=== PATIENT | male | born 1975 | race Caucasian/White ===

== ENCOUNTER → 2018-08-30 | Outpatient (CLI) | payer OTHER ==
--- NOTE | 2018-08-30 10:49 | RAD ---
EXAM: Chest, 2 views. HISTORY: Shortness of breath. COMPARISON: 09/29/2015 FINDINGS: 2 views the chest are obtained. There is no infiltrate, pleural effusion or pneumothorax. The heart is normal in size. There is cervical spinal fusion instrumentation. IMPRESSION: No acute pulmonary finding. Electronically signed by: Shwetha Paris MD (08/30/2018 10:44 AM) [id number]
== END | disposition home or self-care (01) ==
LOC: PMG 10:12
PROVIDERS: ATTEND Registered Nurse
DX: R06.02 Shortness of breath (principal)
CPT/HCPCS: 71046

== ENCOUNTER 2021-02-19 22:20 | Emergency (ER) | payer OTHER ==
[~2021-02-19] VITALS: Ht 175.3 cm; Wt 108.8 kg
--- NOTE | 2021-02-19 22:41 | PHYS DOC ---
Adult General Chief Complaint Chief Complaint: SHORTNESS OF BREATH HPI HPI Patient is an otherwise healthy 45-year-old male who presents with a chief complaint of productive cough, posttussive emesis/vomiting and body aches for the past couple of days and was tested positive for Covid 4 days ago. States he has been taking some NyQuil at night which does seem to help a little. Denies fevers, sore throat, pain or trouble swallowing, chest pain, abdominal pain, diarrhea, dysuria, hematuria or blood in the stool. Review of Systems Review of Systems Review of systems otherwise unremarkable except noted in HPI Physical Exam Physical Exam Constitutional: Well developed, well nourished, no acute distress, non-toxic appearance. [] HENT: Normocephalic, atraumatic, , oropharynx moist, no oral exudates, nose normal. [] Eyes: conjunctiva normal, no discharge. [] Neck: Normal range of motion, no tenderness, supple, no stridor. [] Cardiovascular: Sinus tachycardia Lungs & Thorax: Bilateral, global scant rhonchi with some congestion Abdomen: soft, no tenderness, no masses, no pulsatile masses. [] Skin: Warm, dry, no erythema, no rash. [] Extremities: No tenderness, ROM intact, no edema. [] Neurologic: Alert and oriented X 3, no focal deficits noted. [] Psychologic: Affect normal, judgement normal, mood normal. [] EKG EKG [] Radiology/Procedures Radiology/Procedures [] EXAMINATION: Chest radiograph. VIEWS: Single view COMPARISON: 06/29/2019 INDICATION:45 years, Male, shortness of breath, Covid positive. FINDINGS: Normal cardiomediastinal silhouette. No focal consolidation. No pleural effusion or pneumothorax. No acute osseous process. IMPRESSION: No acute cardiopulmonary process. Electronically signed by: Briana Dejesus MD (02/19/2021 11:14 PM) [facility] Heart Score C/O Chest Pain: No Risk Factors: Risk Factors: DM, Current or recent (<one month) smoker, HTN, HLP, family history of CAD, obesity. Risk Scores: Risk Factors: DM, Current or recent (<one month) smoker, HTN, HLP, family history of CAD, obesity. Course & Med Decision Making Course & Med Decision Making Patient is 45-year-old male, Covid positive who presents with productive cough, body aches, and nausea vomiting Vital signs notable for sinus tachycardia. Physical exam noted above. Given IM, p.o. antiemetics and pain medication [] Dragon Disclaimer Dragon Disclaimer This electronic medical record was generated, in whole or in part, using a voice recognition dictation system. Departure Departure: Impression: Primary Impression: Lab test positive for detection of COVID-19 virus Additional Impressions: Cough Body aches Disposition: 01 HOME / SELF CARE / HOMELESS Condition: IMPROVED Referrals: AICHA NULL (PCP) Additional Instructions: Thank you for coming into the emergency department tonight and allowing us to take care of you. As discussed, please begin a ibuprofen, Tylenol regimen. You can also add Benadryl 50 mg every 6 hours as needed for cough, nausea and sleep. Please call your primary care physician first thing Sunday to update on your ED visit. Please read all the attached information and return to the ED if you have any new or concerning symptoms as discussed. You have been diagnosed with COVID-19. It is an infection caused by a new type of coronavirus. COVID-19 will cause cold-like or mild flu symptoms in most. It can cause more severe symptoms like problems breathing in some. There is no treatment for COVID-19. The body will clear the infection over time. Self-care will help to ease discomfort. Steps to Take: Self-Care Rest as needed. Healthy habits may help you feel better. Steps include: Choose healthy foods including fruits and vegetables. Drink water throughout the day. Get plenty of sleep each night. If you smoke, try to quit. It may ease breathing. Avoid alcohol. Keep Others Healthy The virus can spread to others. Droplets are released every time you sneeze or cough. The droplets can get into the mouth, nose, or eyes of people near you and lead to infection. To lower the chances of spreading COVID-19 to others: Stay at home until your doctor has said it is safe to leave. If you tested positive this will mean staying isolated until both of the following are true: At least 7 days have passed since the start of illness. You are free of fever for at least 72 hours without the use of medicine. During this time: - Avoid public areas, events, or transportation. Do not return to work or [place] until your doctor has said it is safe to do so. - Call ahead if you need to go to a medical center. Let them know you may have COVID-19. It will help them guide you where to go. They may also ask you to wear a facemask when you come to the office. - If you call for emergency medical services, let them know you may have COVID- 19. While at home: - Try to avoid close contact with others. Stay about 6 feet away. - If possible, spend most of your time in a separate room from others. - Use a face mask if you will be in close contact with others such as sharing a room or vehicle. - Have someone wipe down common surfaces in the home. Use household electronic engineering technician every day on areas like doorknobs, counters, or sinks. - Cough or sneeze into a tissue. Throw the tissue away right after use. If a tissue is not available, cough or sneeze into your elbow. - Wash your hands often. Wash them after sneezing or coughing. Use soap and water and wash for at least 20 seconds. Alcohol based hand cotton cleaner can be used if soap and water is not available. - Do not prepare food for others. Avoid sharing personal items like forks, spoons, or toothbrushes. - Avoid close contact with pets while you are sick. There is no evidence of the virus passing to pets. This is a safety step until more is known about this virus. Isolation can be frustrating. Social interaction can help. Keep in touch with friends and family through phone and tech options. You can still interact with others in your home, just keep a safe distance of about 6 feet. Follow-up: Your doctors office will check in with you to see if there are any changes in your health. You may be asked to keep track of symptoms to share with them. They will also let you know when you are clear to be in public again. Problems to Look Out For: Contact your doctor if your recovery is not going as you expect. Get emergency care if you have problems such as: - Trouble breathing - Nonstop chest pain or pressure - Changes in awareness, confusion, or problems waking - Lips or face have bluish color - Worsening of symptoms If you think you have an emergency, call for emergency medical services right away. As taken from [facility] Ondansetron Hcl (ZOFRAN) 4 Mg Tablet 1 TAB PO PRN Q6HRS PRN for NAUSEA, #10 TAB 2 Refills Prov: GEOVANNY SOTELO MD 02/19/21 Problem Qualifiers GEOVANNY SOTELO MD Feb 19, 2021 22:41
[2021-02-19] MEDS ORDERED: ONDANSETRON ODT 4 MG TAB.RAPDIS PO ONE (22:45)
[2021-02-19] MEDS ORDERED: METOCLOPRAMIDE HCL 10 MG/2 ML VIAL. IM ONE (22:45)
[2021-02-19] MEDS ORDERED: MORPHINE SULFATE 4 MG/ML DISP.SYRIN. IM ONE (22:45)
[2021-02-19] MEDS ORDERED: KETOROLAC 60 MG/2 ML VIAL. IM ONE (22:45)
[2021-02-19] MEDS ORDERED: ONDANSETRON ODT 4 MG TAB.RAPDIS ONE (22:50)
[2021-02-19] MEDS ORDERED: METOCLOPRAMIDE HCL 10 MG/2 ML VIAL. ONE (22:50)
[2021-02-19] MEDS ORDERED: KETOROLAC 30 MG/ML VIAL. ONE (22:50)
[2021-02-19] MEDS ORDERED: MORPHINE SULFATE 4 MG/ML DISP.SYRIN. ONE (22:51)
--- NOTE | 2021-02-19 23:17 | RAD ---
EXAMINATION: Chest radiograph. VIEWS: Single view COMPARISON: 06/29/2019 INDICATION:45 years, Male, shortness of breath, Covid positive. FINDINGS: Normal cardiomediastinal silhouette. No focal consolidation. No pleural effusion or pneumothorax. No acute osseous process. IMPRESSION: No acute cardiopulmonary process. Electronically signed by: Briana Dejesus MD (02/19/2021 11:14 PM) [facility]
[2021-02-19] MEDS ORDERED: ONDA4TAB7 PO (23:23)
[2021-02-19 23:30] VITALS: BP 123/70
[2021-02-19] MEDS ORDERED: diphenhydrAMINE HCL 25 MG CAPSULE PO ONE ×2 (23:34→23:45)
--- NOTE | 2021-02-21 11:13 | EKG ---
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
== END 2021-02-19 23:35 | disposition home or self-care (01) ==
LOC: ER 22:20
DX: U07.1 COVID-19 (principal); R06.02 Shortness of breath
CPT/HCPCS: 71045; 93005; 96372; 99284; J1885; J2270; J2765; Q0162; Q0163

== ENCOUNTER 2021-02-24 12:20 | Emergency (ER) | payer OTHER ==
[~2021-02-24] VITALS: Ht 175.3 cm; Wt 108.8 kg
[~2021-02-24 12:20] MED LIST: ONDA4TAB7 PO
[2021-02-24] MEDS ORDERED: IOHEXOL 350 MG/ML 100 ML VIAL. IV ONE (12:45)
[2021-02-24 12:59] LABS: BASO % 0 % (0-3); EOS % 0 % (0-3); HEMOGLOBIN 14.4 g/dL (13.0-17.5); LYMPH # 0.9 x10^3/uL (1.0-4.8); LYMPH % 13 % (24-48); MEAN CORPUSCULAR HEMOGLOBIN 31 pg (25-35); MEAN CORPUSCULAR HGB CONC 33 g/dL (31-37); MEAN CORPUSCULAR VOLUME 94 fL (79-100); MONO # 0.5 x10^3/uL (0.0-1.1); MONO % 7 % (0-9); NEUT # 5.7 x10^3uL (1.8-7.7); NEUT % 81 % (31-73); PLATELET COUNT 221 x10^3/uL (140-400); RED CELL DISTRIBUTION WIDTH 14.2 % (11.5-14.5); WHITE BLOOD COUNT 7.1 x10^3/uL (4.0-11.0)
[2021-02-24] MEDS ORDERED: AZITHROMYCIN 500 MG in IV NORMAL SALINE 250ML 250 ML IV ONE (13:00)
[2021-02-24] MEDS ORDERED: ENOXAPARIN ** NOTE DOSE ** SYRINGE SQ ONE (13:00)
[2021-02-24] MEDS ORDERED: DEXAMETHASONE SOD PHOS 20 MG/5 ML VIAL. IV ONE (13:00)
[2021-02-24 13:07] LABS: CALCIUM 8.4 mg/dL (8.5-10.1); CREATININE 1.4 mg/dL (0.7-1.3); GFR 54.6; POTASSIUM 4.4 mmol/L (3.5-5.1)
[2021-02-24 13:14] LABS: ALBUMIN 3.3 g/dL (3.4-5.0); TOTAL BILIRUBIN 0.5 mg/dL (0.2-1.0); TOTAL PROTEIN 6.6 g/dL (6.4-8.2)
[2021-02-24] MEDS ORDERED: DEXAMETHASONE SOD PHOS 10 MG/ML VIAL. IV ONE (13:15)
[2021-02-24] MEDS ORDERED: AZITHROMYCIN 500 MG VIAL. IV ONE (13:22)
[2021-02-24] MEDS ORDERED: IV NORMAL SALINE 250ML 250 ML ONE (13:22)
--- NOTE | 2021-02-24 13:32 | PHYS DOC ---
Past History Additional Past Medical Histor: fluid retention Past Surgical History: Other Additional Past Surgical Histo: vasectomy; rem of mass fro rt knee;soulders, neck Alcohol Use: Occasionally General Adult EDM: Chief Complaint: SHORTNESS OF BREATH HPI: HPI: 45-year-old male presents from urgent care in respiratory distress. The patient was diagnosed with COVID-19 2 weeks ago. He was seen in this emergency room recently but did not meet admission criteria and was sent home. He went to the urgent care today feeling like he was much more short of breath. His oxygen saturation was reported to be in the 60s. They immediately sent him to the emergency room. On arrival the patient was in the 70s on room air and breathing quite rapidly. He is able to speak in short sentences. He tells us that the breathing just got much worse this morning. Review of Systems: Review of Systems: Constitutional: Denies fever or chills Eyes: Denies change in visual acuity HENT: Denies nasal congestion or sore throat Respiratory: Shortness of breath Cardiovascular: Denies chest pain or edema GI: Denies abdominal pain, nausea, vomiting, bloody stools or diarrhea : Denies dysuria Musculoskeletal: Denies back pain or joint pain Integument: Denies rash Neurologic: Denies headache, focal weakness or sensory changes Endocrine: Denies polyuria or polydipsia Lymphatic: Denies swollen glands Psychiatric: Denies depression or anxiety Current Medications: Current Meds: Current Medications Medications (Trade) Dose Ordered Sig/Puma Start Time Stop Time Status Last Admin Dose Admin Azithromycin 500 mg/Sodium Chloride 250 ml @ 250 mls/hr 1X ONCE 02/24/21 13:00 02/24/21 13:59 Dexamethasone Sodium Phosphate (Decadron) 20 mg 1X ONCE 02/24/21 13:15 02/24/21 13:16 DC Enoxaparin Sodium (Lovenox 100mg Syringe) 100 mg 1X ONCE 02/24/21 13:00 02/24/21 13:10 DC Iohexol (Omnipaque 350 Mg/ml) 100 ml 1X ONCE 02/24/21 12:45 02/24/21 12:49 DC 02/24/21 13:16 100 ML Allergies: Allergies: Allergies Coded Allergies Type Severity Reaction Last Updated Verified hydrocodone Allergy Unknown 02/24/21 Yes Physical Exam: PE: Constitutional: Well developed, well nourished, severe acute distress. [] HENT: Normocephalic, atraumatic, bilateral external ears normal, oropharynx moist, no oral exudates, nose normal. [] Eyes: PERRLA, EOMI, conjunctiva normal, no discharge. [] Neck: Normal range of motion, no tenderness, supple, no stridor. [] Cardiovascular: Heart rate 97, regular rhythm, no murmur [] Lungs & Thorax: Deferred due to COVID-19 status and obvious need for imaging. [] Abdomen: Bowel sounds normal, soft, no tenderness, no masses, no pulsatile masses. [] Skin: Warm, dry, no erythema, no rash. [] Back: No tenderness, no CVA tenderness. [] Extremities: No tenderness, no cyanosis, no clubbing, ROM intact, no edema. [] Neurologic: Alert and oriented X 3, normal motor function, normal sensory function, no focal deficits noted. [] Psychologic: Affect normal, judgement normal, mood anxious. [] Current Patient Data: Labs: Laboratory Tests Test 02/24/21 12:29 02/24/21 12:30 POC Venous pH 7.55 (7.32-7.42) H POC Venous pCO2 26 mmHg (41-51) L POC Venous pO2 45 mmHg (20-40) H Venous Blood HCO3 23 mmol/L (24-28) L POC Venous O2 Saturation (Sherri) 87 % POC FiO2 100 White Blood Count 7.1 x10^3/uL (4.0-11.0) Red Blood Count 4.70 x10^6/uL (4.30-5.70) Hemoglobin 14.4 g/dL (13.0-17.5) Hematocrit 44.0 % (39.0-53.0) Mean Corpuscular Volume 94 fL (79-100) Mean Corpuscular Hemoglobin 31 pg (25-35) Mean Corpuscular Hemoglobin Concent 33 g/dL (31-37) Red Cell Distribution Width 14.2 % (11.5-14.5) Platelet Count 221 x10^3/uL (140-400) Neutrophils (%) (Auto) 81 % (31-73) H Lymphocytes (%) (Auto) 13 % (24-48) L Monocytes (%) (Auto) 7 % (0-9) Eosinophils (%) (Auto) 0 % (0-3) Basophils (%) (Auto) 0 % (0-3) Neutrophils # (Auto) 5.7 x10^3uL (1.8-7.7) Lymphocytes # (Auto) 0.9 x10^3/uL (1.0-4.8) L Monocytes # (Auto) 0.5 x10^3/uL (0.0-1.1) Eosinophils # (Auto) 0.0 x10^3/uL (0.0-0.7) Basophils # (Auto) 0.0 x10^3/uL (0.0-0.2) Sodium Level 143 mmol/L (136-145) Potassium Level 4.4 mmol/L (3.5-5.1) Chloride Level 104 mmol/L (98-107) Carbon Dioxide Level 24 mmol/L (21-32) Anion Gap 15 (6-14) H Blood Urea Nitrogen 23 mg/dL (8-26) Creatinine 1.4 mg/dL (0.7-1.3) H Estimated GFR (Cockcroft-Gault) 54.6 BUN/Creatinine Ratio 16 (6-20) Glucose Level 127 mg/dL (70-99) H Lactic Acid Level 3.2 mmol/L (0.4-2.0) H Calcium Level 8.4 mg/dL (8.5-10.1) L Total Bilirubin 0.5 mg/dL (0.2-1.0) Aspartate Amino Transferase (AST) 101 U/L (15-37) H Alanine Aminotransferase (ALT) 111 U/L (16-63) H Alkaline Phosphatase 63 U/L (46-116) Troponin I Quantitative < 0.017 ng/mL (0-0.055) Total Protein 6.6 g/dL (6.4-8.2) Albumin 3.3 g/dL (3.4-5.0) L Albumin/Globulin Ratio 1.0 (1.0-1.7) Vital Signs: Vital Signs Date Time Temp Pulse Resp B/P (MAP) Pulse Ox O2 Delivery O2 Flow Rate FiO2 02/24/21 12:44 89 19 131/78 (95) 96 BiPAP/CPAP 02/24/21 12:39 12.0 02/24/21 12:28 97.7 EKG: EKG: Sinus rhythm rate 98, normal axis, no ST elevation or depressions. [] Radiology/Procedures: Radiology/Procedures: [] Impressions: CTA CHEST INDICATION: SOB, COVID-19+ Comparison: None. TECHNIQUE: Following the uneventful administration of intravenous contrast, 100 cc Omnipaque, axial CT sections were obtained through the lungs and upper abdomen. Multiplanar reconstructions and MIP images were obtained. PQRS compliance statement: One or more of the following individualized dose reduction techniques were utilized for this examination: 1. Automated exposure control 2. Adjustment of the mA and/or kV according to patient size 3. Use of iterative reconstruction technique FINDINGS: Pulmonary arteries: No evidence of pulmonary thromboembolus disease Lungs and Airways: Diffuse bilateral groundglass opacities and consolidations. No abnormality of the central airways. Pleura: The pleural spaces are normal. Heart and Mediastinum: The visualized thyroid is normal in size and attenuation. No axillary or supraclavicular lymphadenopathy. Enlarged mediastinal and hilar lymph nodes, likely reactive. The heart and pericardium are within normal limits. Normal caliber thoracic aorta. Abdomen: Hepatic steatosis. Bones and Soft Tissues: The visualized bones and chest wall soft tissues are within normal limits. IMPRESSION: 1. No evidence of pulmonary thromboembolic disease. 2. Diffuse bilateral groundglass opacities consolidations consistent with patient's history of infection Electronically signed by: Rebeka Miller MD (02/24/2021 1:42 PM) [id number] DICTATED AND SIGNED BY: REBEKA MILLER MD DATE: 02/24/21 1337 CC: CARLOS OCHOA DO; AICHA NULL PA ~MTH0 0 Heart Score: C/O Chest Pain: No Risk Factors: Risk Factors: DM, Current or recent (<one month) smoker, HTN, HLP, family history of CAD, obesity. Risk Scores: Score 0 - 3: 2.5% MACE over next 6 weeks - Discharge Home Score 4 - 6: 20.3% MACE over next 6 weeks - Admit for Clinical Observation Score 7 - 10: 72.7% MACE over next 6 weeks - Early Invasive Strategies Course & Med Decision Making: Course & Med Decision Making Pertinent Labs and Imaging studies reviewed. (See chart for details) The patient was placed on high flow nasal cannula this only got his oxygen up into the low 80s. He was then placed on BiPAP and 100% oxygen. His oxygen satu ration has increased to 98% and his respiratory rate has decreased to 23. His blood pressure is 144/79 with a heart rate of 94. VBG had a pH of 7.552, CO2 25.6, PO2 45, bicarb 22.5. This lab was prior to BiPAP. I have ordered 20 mg of dexamethasone, 100 mg of Lovenox and 500 mg of azithromycin. I have ordered a CT angiogram of the chest. The patient CTA is negative for pulmonary emboli. He has diffuse groundglass opacities consistent with COVID-19. The patient has been stable on BiPAP. We called multiple hospitals for ICU transfer. [facility] has accepted the patient for transfer, I spoke with Dr. Thornton who is the accepting physician. The patient will go by ambulance. I have informed the patient's about the transfer. [] Dragon Disclaimer: Dragon Disclaimer: This electronic medical record was generated, in whole or in part, using a voice recognition dictation system. Departure Departure: Impression: Primary Impression: COVID-19 Additional Impressions: Pneumonia due to COVID-19 virus Respiratory failure with hypoxia Qualified Codes: J96.01 - Acute respiratory failure with hypoxia Disposition: 02 SHORT TERM HOSPITAL Condition: GUARDED Referrals: AICHA NULL (PCP) CARLOS OCHOA DO Feb 24, 2021 13:32
--- NOTE | 2021-02-24 13:36 | EKG ---
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
--- NOTE | 2021-02-24 13:45 | RAD ---
CTA CHEST INDICATION: SOB, COVID-19+ Comparison: None. TECHNIQUE: Following the uneventful administration of intravenous contrast, 100 cc Omnipaque, axial C T sections were obtained through the lungs and upper abdomen. Multiplanar reconstructions and MIP shahnaz ges were obtained. PQRS compliance statement: One or more of the following individualized dose reduction techniques were utilized for this examinat ion: 1. Automated exposure control 2. Adjustment of the mA and/or kV according to patient size 3. Use of iterative reconstruction technique FINDINGS: Pulmonary arteries: No evidence of pulmonary thromboembolus disease Lungs and Airways: Diffuse bilateral groundglass opacities and consolidations. No abnormality of the central airways. Pleura: The pleural spaces are normal. Heart and Mediastinum: The visualized thyroid is normal in size and attenuation. No axillary or supra clavicular lymphadenopathy. Enlarged mediastinal and hilar lymph nodes, likely reactive. The heart an d pericardium are within normal limits. Normal caliber thoracic aorta. Abdomen: Hepatic steatosis. Bones and Soft Tissues: The visualized bones and chest wall soft tissues are within normal limits. IMPRESSION: 1. No evidence of pulmonary thromboembolic disease. 2. Diffuse bilateral groundglass opacities consolidations consistent with patient's history of infect ion Electronically signed by: Yeison Miller MD (02/24/2021 1:42 PM) [id number]
[2021-02-24 14:37] LABS: BGAS PH 7.44 (7.35-7.46)
[2021-02-24 19:11] VITALS: BP 141/87
== END 2021-02-24 19:21 | disposition short-term general hospital (02) ==
LOC: ER 12:20
DX: U07.1 COVID-19 (principal); J12.82 Pneumonia due to coronavirus disease 2019; J96.91 Respiratory failure, unspecified with hypoxia
CPT/HCPCS: 36415; 36600; 71275; 80053; 82803; 83605; 84484; 85025; 87040; 93005; 94660; 96365; 96372; 96375; 99285; J0456; J1100; J1650; J7050; Q9967